=== PATIENT | male | born 1990 | race American Indian/Alaskan Native ===

== ENCOUNTER 2021-01-21 11:32 | Emergency (ER) | payer OTHER ==
[2021-01-21 11:51] VITALS: BP 118/85
== END 2021-01-21 14:30 | disposition left against medical advice (07) ==
LOC: ED 11:32
DX: Z53.21 Procedure and treatment not carried out due to patient leaving prior to being seen by health care provider (principal)

== ENCOUNTER 2023-10-18 10:41 | Emergency (ER) | payer OTHER ==
[2023-10-18 11:19] VITALS: BP 130/85; O2SAT 100
--- NOTE | 2023-10-18 11:51 | XRAY Report ---
PROCEDURE: Shoulder 2+V RT INDICATIONS: pain TECHNIQUE: 3 views of the shoulder were acquired. COMPARISON: None. FINDINGS: Bones: No fractures or dislocations. No suspicious bony lesions. Visualized ribs appear intact. Soft tissues: No suspicious soft tissue calcifications. The visualized lungs are within normal limi ts. IMPRESSION: No acute bony abnormality. Reviewed by: Delvin Argueta MD on 10/18/2023 11:49 AM PDT Approved by: Delvin Argueta MD on 10/18/2023 11:49 AM PDT Station ID: [id number]
--- NOTE | 2023-10-18 12:58 | ED Physician Documentation ---
PD HPI UPPER EXT INJURY - Stated complaint Stated Complaint: SHARP PX,RT SHOULDER,UNWELL - Chief complaint Chief Complaint: Ext Problem - History obtained from History obtained from: Patient - Additonal information Additional information: 33-year-old male presents for worsening of chronic right shoulder pain. Patient has been dealing with this pain for over a year. He states that he has had MRIs that show he has small tears in his rotator cuff. He has gone to physical therapy and received injections from orthopedics, none of which seem to help him very much. Took trazodone at home without relief of pain. Denies trauma or other known injuries to his arm. Review of Systems Constitutional: denies: Fever, Chills Musculoskeletal: reports: Joint pain. denies: Neck pain, Back pain, Extremity pain, Extremity swelling, Joint swelling Neurologic: denies: Generalized weakness, Focal weakness, Numbness PD PAST MEDICAL HISTORY - Past Medical History Past Medical History: Yes Cardiovascular: None Respiratory: None Neuro: None Endocrine/Autoimmune: None GI: None : None HEENT: None Psych: None Musculoskeletal: Other Derm: None - Past Surgical History Past Surgical History: No - Present Medications Home Medications: Ambulatory Orders Medication Instructions Recorded Confirmed Amitriptyline [Elavil] 10 mg PO QPM 10/18/23 10/18/23 Carboxymethylcellulose Sodium 1 drops OP DAILY PRN 10/18/23 10/18/23 Dextroamphetamine/Amphetamine 10 mg PO DAILY 10/18/23 10/18/23 [Adderall 10 mg Tablet] methocarbamoL [Robaxin] 500 mg PO Q6H #30 tablet 10/18/23 traZODone [Desyrel] 50 mg PO HS 10/18/23 10/18/23 - Allergies Allergies/Adverse Reactions: Allergies Allergy/AdvReac Type Severity Reaction Status Date / Time mustard Allergy Hives Verified 10/18/23 11:05 - Social History Does the pt smoke?: No Smoking Status: Never smoker Does the pt drink ETOH?: No Does the pt have substance abuse?: No - Immunizations Immunizations are current?: Yes - POLST Patient has POLST: No PD ED PE NORMAL - Vitals Vital signs reviewed: Yes - General General: Alert and oriented X 3, Well developed/nourished - Neck Neck: Supple, no meningeal sign - Cardiac Cardiac: RRR, Strong equal pulses - Respiratory Respiratory: No respiratory distress - Abdomen Abdomen: Soft, Non tender, Non distended - Derm Derm: Normal color, Warm and dry, No rash - Extremities Extremities: No deformity, No edema, Other (Generalized tenderness palpation over shoulder joint, reduced range of motion secondary to pain. 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 Patient has been thoroughly evaluated by orthopedics for this injury and patient's reported pain seems incongruent with his reported MRI results. X-ray imaging negative for new acute findings. Patient placed in sling for comfort, given medications for pain. Sent home with short course of muscle relaxers. Instructed to use Tylenol and ibuprofen for pain and to continue to ice. Recommended close follow-up with orthopedics. Departure - Departure Disposition: 01 Home, Self Care Clinical Impression: Shoulder pain Condition: Stable Instructions: ED Shoulder Pain [facility] Prescriptions: methocarbamoL [Robaxin] 500 mg PO Q6H #30 tablet Comments: Your x-rays today were normal. I do not know the cause of your flareup and shoulder pain. Continue to follow-up with your orthopedic specialists for your shoulder pain. Take Tylenol and ibuprofen as needed for comfort. Apply ice to swelling and you may also use patches such as Salonpas for comfort. Wear the sling as desired for comfort. A short course of muscle relaxers has been sent to the [facility] in [place]. Forms: PCP List Discharge Date/Time: 10/18/23 14:01
[2023-10-18] MEDS: methocarbamoL 500 MG TABLET PO STA (13:16)
[2023-10-18] MEDS: KETOROLAC 30 MG/ML VIAL IM STA (13:16)
[2023-10-18] MEDS: LIDOCAINE PATCH 5% TOP STA (13:17)
[2023-10-18] MEDS: diazePAM INJ 5 MG/ML SYRINGE IM STA (13:38)
== END 2023-10-18 14:01 | disposition home or self-care (01) ==
LOC: ED 10:41
DX: M25.511 Pain in right shoulder (principal); G89.29 Other chronic pain
CPT/HCPCS: 73030; 96372; 99283; A9270